=== PATIENT | male | born 1950 | race Asian ===

== ENCOUNTER 2023-10-04 18:14 | Emergency (ER) | payer MEDICARE ==
[~2023-10-04] VITALS: Ht 165.1 cm; Wt 78.0 kg
[2023-10-04 18:23] VITALS: BP 126/66; PULSE 89; RESP 16
[2023-10-04 19:08] LABS: APPEARANCE,URINE CLEAR (CLEAR); BILIRUBIN,URINE NEGATIVE (NEGATIVE); COLOR,URINE LIGHT-YELLOW (YELLOW); GLUCOSE, URINE (UA) 500 mg/dL (NEGATIVE); KETONES,URINE NEGATIVE (NEGATIVE); LEUKOCYTE ESTERASE ,URINE NEGATIVE Leu/uL (NEGATIVE); NITRATE,URINE NEGATIVE (NEGATIVE); OCCULT BLOOD,URINE LARGE (NEGATIVE); PROTEIN,URINE 100 mg/dL (NEGATIVE); UROBILINOGEN,URINE 0.2 mg/dL (0.2-1.0)
[2023-10-04 19:15] LABS: ADD UA MICROSCOPIC YES
[2023-10-04 19:16] LABS: BACTERIA,URINE RARE /HPF (None Seen); RBC,URINE 0-1 /HPF (0-1); YEAST,URINE BUDDING FEW /HPF (None Seen)
[2023-10-04 19:52] LABS: RAPID GROUP A STREP positive (NEGATIVE)
[2023-10-04 19:55] LABS: SARS-CoV-2, RNA, NAAT NEGATIVE SARS CoV-2 (NEGATIVE)
[2023-10-04 20:01] LABS: INFLUENZA TYPE A Negative For Type A (NEGATIVE); INFLUENZA TYPE B Negative For Type B (NEGATIVE)
[2023-10-04] MEDS ORDERED: AMOX875T2 PO (20:22)
[2023-10-04] MEDS: CEFTRIAXONE 1G VIAL IM ONE (21:01)
[2023-10-04 21:07] VITALS: TEMP 102
[2023-10-04] MEDS: ACETAMINOPHEN 500 MG TABLET PO ONE (21:07)
[2023-10-04] MEDS: ACETAMINOPHEN 500 MG TABLET ONE (21:07)
== END 2023-10-04 21:24 | disposition home or self-care (01) ==
LOC: EDH 18:14
DX: J02.0 Streptococcal pharyngitis (principal); E11.9 Type 2 diabetes mellitus without complications; K21.9 Gastro-esophageal reflux disease without esophagitis; E78.00 Pure hypercholesterolemia, unspecified; I10 Essential (primary) hypertension; Z20.822 Contact with and (suspected) exposure to COVID-19
CPT/HCPCS: 99284; 71045; 87635; 87880; 87804 ×2; 81001; 96372; J0696